=== PATIENT | female | born 1995 | race Caucasian/White ===

== ENCOUNTER 2018-10-29 18:19 | Emergency (ER) | payer MEDICAID ==
[~2018-10-29] VITALS: Ht 154.9 cm; Wt 58.7 kg
[2018-10-29 18:28] VITALS: BP 128/82
--- NOTE | 2018-10-29 18:54 | NUR ---
PT WAS A/OX3, LACERATION ON LEFT LEG. S/P LAMP DROPPED ON IT. BLEEDING STOPPED. QUIETLY SITTING ON BED, WAITING FOR MD TO SEE.
--- NOTE | 2018-10-29 19:17 | NUR ---
RECEIVED REPORT FROM [facility]. PT RESTING IN BED, NO SIGNS OF DISTRESS NOTED. VSS.
[2018-10-29] MEDS ORDERED: ACETAMINOPHEN EXTRA STRENGTH 500 MG TAB PO ONE (19:30)
[2018-10-29] MEDS ORDERED: LIDOCAINE 1% 500 MG/50 ML VIAL INJ SCH (19:30)
--- NOTE | 2018-10-29 20:15 | NUR ---
XYLOCANE ADMINISTERED BY ER PA BEFORE SUTURES.
--- NOTE | 2018-10-29 20:36 | NUR ---
PT WOUND COVERED WITH NON ADHERENT DRESSING AND WRAPPED WITH ROLLER GAUZE AFTER BACITRACIN APPLIED. +CSM
[2018-10-29] MEDS ORDERED: BACITRACIN OINT 500 UNITS/GM PKT TP ONE ×2 (20:40→20:46)
[2018-10-29 21:04] VITALS: BP 122/73
--- NOTE | 2018-10-29 21:04 | NUR ---
Patient discharged with v/s stable. Written and verbal after care instructions given and explained. Patient alert, oriented and verbalized understanding of instructions. Ambulatory with steady gait. All questions addressed prior to discharge. ID band removed. Patient advised to follow up with PMD. Rx of IBUPROFEN 600MG, BACITRACIN 500UNIT/G given. Patient educated on indication of medication including possible reaction and side effects. Opportunity to ask questions provided and answered.
== END 2018-10-29 21:04 | disposition home or self-care (01) ==
LOC: MED 18:19
DX: S81.812A Laceration without foreign body, left lower leg, initial encounter (principal); W22.8XXA Striking against or struck by other objects, initial encounter; Y93.89 Activity, other specified; Y92.89 Other specified places as the place of occurrence of the external cause; Y99.8 Other external cause status
CPT/HCPCS: 99283